=== PATIENT | male | born 1960 | race Caucasian/White ===

== ENCOUNTER 2016-06-14 18:38 | Inpatient (IN) | payer OTHER ==
--- NOTE | ~2016-06-14 | HP ---
History And Physical [address] [address] [facility] [place]. [address] NAME: HOLLY LIND : 62 STATUS : ADM Camacho PAT#: [id number] AGE: 56 ADM/REG DATE : 06/14/16 MR#: [id number] REPORT SERV DATE: 06/15/16 DICTATED BY: DOUG SPENCER DATE: 06/15/16 REPORT STATUS : Draft TRANSCRIBED BY: MODL DATE: 06/15/16 DATE OF ADMISSION: 06/14/2016 CHIEF COMPLAINT: Fever and chills. HISTORY OF PRESENT ILLNESS: This is a 56-year-old male with a history of end-stage liver disease, recent pancreatitis, history of GI bleed with esophageal varices in the past, who was in his usual state of health until this morning when he woke up and felt he was not feeling too good. He continued to feel poorly while at work and he thought he had some fever there. Later in the afternoon when he was driving home, he started having shaking chills and found himself wandering on the road even sometimes into the other natali. He immediately pulled over and called his , who came and picked him up and she decided to bring him to the emergency room to be evaluated. In the emergency room, initial workup revealed he had bibasilar infiltrates with left-sided effusion as well consistent with pneumonia. Given his recent history of admission and inpatient treatment here, it is possible he could have healthcare-associated pneumonia and Hospitalist Service is asked to admit him for further evaluation and treatment. At the time of my evaluation, he denied any chest pain or palpitations. He had no orthopnea. He had no cough, hemoptysis, night sweats, or weight loss. He has not had any recent nausea vomiting, diarrhea, hematemesis, hematochezia, or hematuria. No other history of recent travel or exposures other than those mentioned above. PAST MEDICAL HISTORY: Significant for history of end-stage liver disease, nonalcoholic steatohepatitis, recent pancreatitis, diabetes mellitus type 2, history of gastrointestinal bleeding secondary to esophageal varices, and chronic anemia. SOCIAL HISTORY: He does not smoke, drink, or use recreational drugs. FAMILY HISTORY: Noncontributory. MEDICATIONS: His medications at home were reviewed by me in the chart today and reordered by me. REVIEW OF SYSTEMS: As in history of present illness. All other systems were reviewed in detail and are quite unremarkable. PHYSICAL EXAMINATION: GENERAL: This is a pleasant 56-year-old, not in any acute distress. HEENT: His head is atraumatic, normocephalic. He is alert, awake, oriented to time, place, and person. Pupils are equal, reacting to light and accommodating. External ocular muscles are intact. Membranes are moist and pink. Sclerae are nonicteric. NECK: Supple with no jugular venous distention, lymphadenopathy, or thyromegaly. LUNGS: Clear to auscultation with no wheezes, rubs, or crackles. History And Physical [address] [address] NAME: HOLLY LIND : 62 STATUS : ADM Camacho PAT#: [id number] AGE: 56 ADM/REG DATE : 06/14/16 MR#: [id number] REPORT SERV DATE: 06/15/16 DICTATED BY: DOUG SPENCER DATE: 06/15/16 REPORT STATUS : Draft TRANSCRIBED BY: CHOLO DATE: 06/15/16 HEART: Heart sounds were regular with no murmurs, rubs, or gallops. ABDOMEN: Soft, nontender. Bowel sounds are present. EXTREMITIES: Showed bilateral pitting lower extremity edema. NEUROLOGIC: Grossly intact. No focal sensory or motor deficits. There was no tremor. VITAL SIGNS: Today showed a temperature of 102 degrees Fahrenheit, pulse 93, respirations 16 a minute, blood pressure was 128/56, oxygen saturations were 97% breathing 2 L of oxygen via nasal cannula. LABORATORY DATA: Reviewed on the [employer] system showed a sodium of 138, potassium was 3.4, chloride 102, and CO2 of 29. BUN was 16 with creatinine of 1.41. His glucose was 151. Calcium was 8.4, magnesium was not done today. His total bilirubin was 1.5 today. Alkaline phosphatase was 192. ALT and AST were within normal limits. Lipase was 179 today. Ammonia was 82. Lactate was 1.4. CBC showed white blood cell count of 4600, hemoglobin was 8.5, hematocrit 28.7. This has been around his baseline. His MCV is 74.2 and platelet count was 62 today. Urinalysis did not show any gross abnormality. Films of the CTA of his chest were reviewed by me on the PACS today and interpreted by me. Official Radiology comments were also reviewed. There is bibasilar atelectasis versus infiltrates with left-sided pleural effusion as well. A 12-lead EKG done in the emergency room was reviewed and interpreted by me. There is normal sinus rhythm at a rate of 95 per minute without any acute ST-T changes. IMPRESSION: 1. Fever and chills. 2. Healthcare-associated pneumonia. 3. Recent pancreatitis. 4. End-stage liver disease with cirrhosis. 5. Diabetes mellitus type 2. 6. Thrombocytopenia. PLAN: We will admit Mr. Lind to a telemetry bed for a 24-hour observation period. After cultures are drawn, we will start him on empiric IV antibiotics for healthcare- associated pneumonia. Check his lactate and procalcitonin levels. We will start him on IV fluids for volume resuscitation. Check chemistry and CBC in the morning and replace as needed. We will also start him on NovoLog insulin given subcutaneously per sliding scale for blood sugar control. We will continue all other medications and treatments at this time and due to his thrombocytopenia, we will place him on SCDs for DVT prophylaxis. I have discussed the above plans with the patient. Questions were answered and he is agreeable to the above recommendations. Hospitalist Service will be following him during his stay here. [facility] Doug Spencer M.D. / [phone]
--- NOTE | ~2016-06-14 | DS ---
Discharge Summary [address] [place]. [address] NAME: HOLLY LIND : 62 STATUS : DIS IN PAT#: [id number] AGE: 56 ADM/REG DATE : 06/14/16 MR#: [id number] REPORT SERV DATE: 06/20/16 DICTATED BY: IRA KIM DATE: 06/17/16 REPORT STATUS : Draft TRANSCRIBED BY: MODL DATE: 06/17/16 ADMISSION DATE: 06/14/2016 DISCHARGE DATE: 06/17/2016 REASON FOR ADMISSION: Healthcare-associated pneumonia, acute kidney injury. HISTORY OF PRESENT ILLNESS: Please refer Dr. Spencer's history and physical dated 06/15/2016, for complete details regarding the patient's admission. In brief, the patient was admitted to the Hospitalist Service for fever, chills likely due to healthcare-associated pneumonia. HOSPITAL COURSE: The patient had an uncomplicated hospital course. He presented with a fever. The ER did a chest x-ray, which showed some mild central venous congestion. CT scan of the abdomen and pelvis showed marked splenomegaly. There was cholelithiasis, but no acute cholecystitis pattern. There are bibasilar infiltrates and left pleural effusion. May present bibasilar pneumonia and some mild abdominal ascites. Dr. Spencer had started the patient on vancomycin and cefepime. Blood cultures were obtained, which showed no growth to date. His fever had defervesced and has been afebrile for the past 24 hours. On 06/16/2016, he was feeling excellent, was requesting to go home, but I encouraged him to stay for one more day with IV antibiotics. His abdomen was distended. He was sent down to Interventional Radiology for a possible paracentesis. Limited abdominal ultrasound showed trace ascites and paracentesis was performed. He did have about 1 to 2+ pitting edema in his lower extremities. His acute kidney injury had resolved. His diuretics were held and started on some gentle IV hydration. His creatinine is down to about 1.1 on the day of discharge. The patient feels great and is wanting to go home today. He will be discharged home in stable condition. DISCHARGE DIAGNOSES: 1. Healthcare-associated pneumonia, now resolving. 2. Acute kidney injury, now resolved. 3. End-stage liver disease with cirrhosis, stable. 4. Type 2 diabetes. 5. Pancytopenia secondary to infection and cirrhosis. 6. History of recent pancreatitis. 7. Cholelithiasis. 8. History of varices secondary to nonalcoholic steatohepatitis. PROCEDURES: Include CT scan of the abdomen and pelvis, chest x-ray, limited abdominal ultrasound looking for ascites. DISCHARGE MEDICATIONS: Include Bumex 10 mg twice a day on Sunday, Sunday, Sunday and then 8 mg twice a day Sunday, Sunday, , Sunday; carvedilol 3.125 mg twice a day; eplerenone 50 mg twice a day; gabapentin 300 mg at bedtime; insulin Levemir 60 units twice a day; lactulose 15 mL twice a day, Protonix 40 mg twice a day, K-Dur 20 mEq daily, rifaximin 550 mg twice a day, insulin lispro sliding scale, Levaquin 750 mg once a day for seven days. FOLLOWUP: The patient will follow up with Dr. Rikki Quiroga as scheduled and his nurse Discharge Summary [address] [address] NAME: HOLLY LIND : 62 STATUS : DIS IN PAT#: [id number] AGE: 56 ADM/REG DATE : 06/14/16 MR#: [id number] REPORT SERV DATE: 06/20/16 DICTATED BY: IRA KIM DATE: 06/17/16 REPORT STATUS : Draft TRANSCRIBED BY: CHOLO DATE: 06/17/16 practitioner in [place], I think it is Cherrie Dozier. SWEETIE/CHOLO Ira Kim MD / [id number] CC: MD EBONY Shipley,CHERRIE Quiroga M.D.
[2016-06-14 18:20] LABS: BASOPHILS 0.4 %; BASOPHILS ABSOLUTE 0.02 10/3/uL (0.0-0.16); EOSINOPHILS 0.2 %; EOSINOPHILS ABSOLUTE 0.01 10/3/uL (0.0-0.53); HEMATOCRIT 28.7 % (40.0-51.0); HEMOGLOBIN 8.5 g/dL (13.6-17.8); IMMATURE GRANULOCYTES 1.1 %; IMMATURE GRANULOCYTES ABSOLUTE 0.05 10/3/uL (0.0-0.11); LYMPHOCYTES 11.8 %; LYMPHOCYTES ABSOLUTE 0.54 10/3/uL (0.67-4.30); MEAN CORPUS HGB CONC 29.6 g/dL (32.0-36.0); MEAN CORPUSCULAR VOLUME 74.2 fL (80-100); MEAN PLATELET VOLUME 8.9 fL (9.2-13.0); MONOCYTES ABSOLUTE 0.32 10/3/uL (0.21-1.20); NEUTROPHILS 79.5 %; NEUTROPHILS ABSOLUTE 3.64 10/3/uL (2.02-8.40); PLATELET COUNT 62 10/3/uL (150-400); RBC DISTRIBUTION WIDTH 19.8 % (12.0-16.0); RED CELL COUNT 3.87 10/6/uL (4.7-6.1)
[2016-06-14 18:23] LABS: ER CBC TAT 0 Hrs 09 Mins; MANUAL DIFF NO %; WHITE BLOOD CELLS 4.6 10/3/uL (4.5-10.5)
[2016-06-14 18:26] LABS: INTERNATIONAL NORMAL RATI 1.3 UNITS (-); PARTIAL THROMBO TIME 29.7 SEC (22.5-37.2); PROTIME (NOT ORD) 16.3 SEC (12.0-14.5)
[2016-06-14 18:38] LABS: A/G RATIO 0.6 (0.7-1.9); BUN (BLOOD UREA NITROGEN) 16 MG/DL (6-23); CALCIUM, SERUM 8.4 MG/DL (8.5-10.4); CHLORIDE, SERUM 102 MMOL/L (96-112); CO2 (CARBON DIOXIDE) 29 MMOL/L (24-34); CREATININE 1.41 MG/DL (0.70-1.30); GFR AFRICAN AMERICAN 65 ML/MIN (>=60); GFR NON AFRICAN AMERICAN 56 ML/MIN (>=60); GLOBULIN 4.7 G/DL (2.5-4.1); LACTATE 1.4 MMOL/L (0.3-2.4); POTASSIUM, SERUM 3.4 MMOL/L (3.5-5.3); SGOT(AST) 34 U/L (5-40); SGPT(ALT) 31 U/L (5-65); SODIUM, SERUM 138 MMOL/L (135-148); TOTAL BILIRUBIN 1.5 MG/DL (0-1.2); TOTAL PROTEIN 7.7 G/DL (6.0-8.5)
[~2016-06-14 18:38] MED LIST: BACDS PO; BUM2 PO; CIP5 PO; CONSTULOSE PO; DURICEF; DURICEF PO; ENULOSE PO; FLORASTOR250 MG PO; GLUCOPHAGE1000 MG PO; INSPRA50 MG PO; IRON325 MG PO; KCL40UDL PO; KDUR20 PO; KLOR-CON M2020 MEQ PO; L40 PO; L80 PO; LACT30UDL PO; LEVEMFLXPN SC; LEVEMIR SC; LOP25 PO; MAGOX4 PO; METFORMIN PO; NEUR100 PO; NEUR300 PO; NEUR600 PO; NOVOLOG SC; NOVOPEN SC; OCEAN NAS; PROTONIX PO; SPIRO25 PO; SPIRO50 PO; TRADJENTA5 MG PO; TYLENOL OTC PO; VISINE0.05 % OPH; XIFAXAN550 MG PO
[2016-06-14 18:41] LABS: ALKALINE PHOSPHATASE 192 U/L (45-117); GLUCOSE, SERUM 151 MG/DL (60-99)
[2016-06-14 18:57] LABS: ANISOCYTOSIS 1+ (5-10/OIF) (0-5/OIF); HYPOCHROMIA 1+ (3-10/OIF) (0-2/OIF); MICROCYTES 1+ (5-10/OIF) (0-5/OIF); PLATELET ESTIMATE DEC (ADEQUATE)
[2016-06-14 19:11] LABS: INFLUENZA A SCREEN NEGATIVE (NEGATIVE); INFLUENZA B SCREEN NEGATIVE (NEGATIVE)
[2016-06-14 19:57] LABS: WBC (NOT ORDERED) (RFLEX) 0 (0-5)
[2016-06-14 20:04] LABS: ASCORBIC ACID (UR NOT ORDER) NEG (NEG); BILIRUBIN, URINE NEGATIVE (NEG); ER URINALYSIS TAT 0 Hrs 07 Mins; KETONE, URINE NEGATIVE (NEG); LEUKOCYTE ESTERASE(NOT OR NEG (NEG); NITRITE (URINE) NEG (NEG)
[2016-06-14 20:48] LABS: PROCALCITONIN 0.36 ng/mL (<0.5)
[2016-06-14] MEDS ORDERED: BUM2 PO ×2 (23:01→23:02)
[2016-06-14] MEDS ORDERED: COREG3 PO (23:02)
[2016-06-14] MEDS ORDERED: INSPRA50 MG PO (23:02)
[2016-06-14] MEDS ORDERED: KDUR20 PO (23:03)
[2016-06-14] MEDS ORDERED: NEUR300 PO (23:03)
[2016-06-14] MEDS ORDERED: XIFAXAN550 MG PO (23:03)
[2016-06-14] MEDS ORDERED: PROTONIX PO (23:03)
[2016-06-14] MEDS ORDERED: CONSTULOSE PO (23:04)
[2016-06-14] MEDS ORDERED: LEVEMFLXPN PO (23:04)
[2016-06-14] MEDS ORDERED: HUMALOG SC (23:04)
[2016-06-15 07:27] LABS: BASOPHILS 0.2 %; BASOPHILS ABSOLUTE 0.01 10/3/uL (0.0-0.16); EOSINOPHILS 0 %; HEMATOCRIT 24.7 % (40.0-51.0); HEMOGLOBIN 7.5 g/dL (13.6-17.8); IMMATURE GRANULOCYTES 0.5 %; IMMATURE GRANULOCYTES ABSOLUTE 0.02 10/3/uL (0.0-0.11); LYMPHOCYTES ABSOLUTE 0.59 10/3/uL (0.67-4.30); MANUAL DIFF NO %; MEAN CORPUS HGB CONC 30.4 g/dL (32.0-36.0); MEAN CORPUSCULAR HEMOGLOB 22.2 pg (26.0-34.0); MEAN CORPUSCULAR VOLUME 73.1 fL (80-100); MONOCYTES ABSOLUTE 0.46 10/3/uL (0.21-1.20); NEUTROPHILS 74.3 %; NEUTROPHILS ABSOLUTE 3.12 10/3/uL (2.02-8.40); PLATELET COUNT 57 10/3/uL (150-400); RBC DISTRIBUTION WIDTH 20.4 % (12.0-16.0); RED CELL COUNT 3.38 10/6/uL (4.7-6.1); WHITE BLOOD CELLS 4.2 10/3/uL (4.5-10.5)
[2016-06-15 07:29] LABS: BUN (BLOOD UREA NITROGEN) 16 MG/DL (6-23); CALCIUM, SERUM 8.2 MG/DL (8.5-10.4); CHLORIDE, SERUM 104 MMOL/L (96-112); CO2 (CARBON DIOXIDE) 28 MMOL/L (24-34); GLUCOSE, SERUM 143 MG/DL (60-99); POTASSIUM, SERUM 3.2 MMOL/L (3.5-5.3); SODIUM, SERUM 141 MMOL/L (135-148)
[2016-06-15 07:30] LABS: CREATININE 1.28 MG/DL (0.70-1.30); GFR AFRICAN AMERICAN 73 ML/MIN (>=60); GFR NON AFRICAN AMERICAN 63 ML/MIN (>=60); PHOSPHORUS, SERUM 2.6 MG/DL (2.5-4.5)
[2016-06-15 07:39] LABS: ANISOCYTOSIS 1+ (5-10/OIF) (0-5/OIF); MICROCYTES 1+ (5-10/OIF) (0-5/OIF); PLATELET ESTIMATE DEC (ADEQUATE)
[2016-06-15 07:40] LABS: RBC MORPHOLOGY ABN (NORMAL)
[2016-06-16 03:49] LABS: BASOPHILS 0.4 %; BASOPHILS ABSOLUTE 0.02 10/3/uL (0.0-0.16); EOSINOPHILS 1.1 %; EOSINOPHILS ABSOLUTE 0.05 10/3/uL (0.0-0.53); HEMOGLOBIN 8.2 g/dL (13.6-17.8); IMMATURE GRANULOCYTES 0.4 %; IMMATURE GRANULOCYTES ABSOLUTE 0.02 10/3/uL (0.0-0.11); LYMPHOCYTES 13.8 %; LYMPHOCYTES ABSOLUTE 0.64 10/3/uL (0.67-4.30); MEAN CORPUS HGB CONC 30.1 g/dL (32.0-36.0); MEAN CORPUSCULAR HEMOGLOB 22.5 pg (26.0-34.0); MEAN CORPUSCULAR VOLUME 74.7 fL (80-100); MEAN PLATELET VOLUME 8.5 fL (9.2-13.0); MONOCYTES 10.3 %; MONOCYTES ABSOLUTE 0.48 10/3/uL (0.21-1.20); NEUTROPHILS ABSOLUTE 3.43 10/3/uL (2.02-8.40); PLATELET COUNT 58 10/3/uL (150-400); RBC DISTRIBUTION WIDTH 20.5 % (12.0-16.0); RED CELL COUNT 3.64 10/6/uL (4.7-6.1); WHITE BLOOD CELLS 4.6 10/3/uL (4.5-10.5)
[2016-06-16 03:57] LABS: HEMATOCRIT 27.2 % (40.0-51.0); MANUAL DIFF NO %
[2016-06-16 04:05] LABS: A/G RATIO 0.6 (0.7-1.9); ALBUMIN 2.6 G/DL (3.5-5.0); BUN (BLOOD UREA NITROGEN) 15 MG/DL (6-23); CALCIUM, SERUM 7.9 MG/DL (8.5-10.4); CHLORIDE, SERUM 106 MMOL/L (96-112); CO2 (CARBON DIOXIDE) 28 MMOL/L (24-34); CREATININE 1.31 MG/DL (0.70-1.30); GFR AFRICAN AMERICAN 71 ML/MIN (>=60); GFR NON AFRICAN AMERICAN 61 ML/MIN (>=60); GLOBULIN 4.5 G/DL (2.5-4.1); PHOSPHORUS, SERUM 2.4 MG/DL (2.5-4.5); POTASSIUM, SERUM 3.1 MMOL/L (3.5-5.3); SGOT(AST) 27 U/L (5-40); SGPT(ALT) 28 U/L (5-65); SODIUM, SERUM 142 MMOL/L (135-148); TOTAL PROTEIN 7.1 G/DL (6.0-8.5)
[2016-06-16 04:06] LABS: ALKALINE PHOSPHATASE 159 U/L (45-117); GLUCOSE, SERUM 102 MG/DL (60-99); MICROCYTES 1+ (5-10/OIF) (0-5/OIF); TOTAL BILIRUBIN 2.3 MG/DL (0-1.2)
[2016-06-16 04:07] LABS: HYPOCHROMIA 1+ (3-10/OIF) (0-2/OIF)
[2016-06-16 04:08] LABS: PLATELET ESTIMATE DEC (ADEQUATE); RBC MORPHOLOGY ABN (NORMAL)
[2016-06-16 11:27] LABS: INTERNATIONAL NORMAL RATI 1.3 UNITS (-); PROTIME (NOT ORD) 16.5 SEC (12.0-14.5)
[2016-06-16 11:36] LABS: ALBUMIN 2.7 G/DL (3.5-5.0); TOTAL PROTEIN 7.1 G/DL (6.0-8.5)
[2016-06-16 12:17] LABS: PARTIAL THROMBO TIME 30.2 SEC (22.5-37.2)
[2016-06-17 03:02] LABS: BASOPHILS 0.3 %; BASOPHILS ABSOLUTE 0.01 10/3/uL (0.0-0.16); EOSINOPHILS 4.1 %; EOSINOPHILS ABSOLUTE 0.13 10/3/uL (0.0-0.53); HEMATOCRIT 26.5 % (40.0-51.0); HEMOGLOBIN 8.1 g/dL (13.6-17.8); IMMATURE GRANULOCYTES 0.6 %; IMMATURE GRANULOCYTES ABSOLUTE 0.02 10/3/uL (0.0-0.11); LYMPHOCYTES 26.9 %; LYMPHOCYTES ABSOLUTE 0.86 10/3/uL (0.67-4.30); MEAN CORPUS HGB CONC 30.6 g/dL (32.0-36.0); MEAN CORPUSCULAR HEMOGLOB 23.1 pg (26.0-34.0); MEAN CORPUSCULAR VOLUME 75.5 fL (80-100); MEAN PLATELET VOLUME 9.1 fL (9.2-13.0); MONOCYTES 8.1 %; MONOCYTES ABSOLUTE 0.26 10/3/uL (0.21-1.20); NEUTROPHILS ABSOLUTE 1.92 10/3/uL (2.02-8.40); PLATELET COUNT 61 10/3/uL (150-400); RBC DISTRIBUTION WIDTH 20.9 % (12.0-16.0); RED CELL COUNT 3.51 10/6/uL (4.7-6.1); WHITE BLOOD CELLS 3.2 10/3/uL (4.5-10.5)
[2016-06-17 03:09] LABS: MANUAL DIFF NO %
[2016-06-17 03:34] LABS: A/G RATIO 0.6 (0.7-1.9); ALBUMIN 2.5 G/DL (3.5-5.0); ALKALINE PHOSPHATASE 134 U/L (45-117); BUN (BLOOD UREA NITROGEN) 15 MG/DL (6-23); CALCIUM, SERUM 7.9 MG/DL (8.5-10.4); CHLORIDE, SERUM 105 MMOL/L (96-112); CO2 (CARBON DIOXIDE) 30 MMOL/L (24-34); CREATININE 1.09 MG/DL (0.70-1.30); GFR AFRICAN AMERICAN 88 ML/MIN (>=60); GFR NON AFRICAN AMERICAN 76 ML/MIN (>=60); GLUCOSE, SERUM 109 MG/DL (60-99); PHOSPHORUS, SERUM 2.3 MG/DL (2.5-4.5); POTASSIUM, SERUM 3.2 MMOL/L (3.5-5.3); SGOT(AST) 25 U/L (5-40); SGPT(ALT) 22 U/L (5-65); SODIUM, SERUM 142 MMOL/L (135-148); TOTAL BILIRUBIN 1.8 MG/DL (0-1.2); TOTAL PROTEIN 6.5 G/DL (6.0-8.5); VANCOMYCIN TROUGH 14.2 MCG/ML (10.0-20.0)
[2016-06-17 03:55] LABS: MICROCYTES 1+ (5-10/OIF) (0-5/OIF); PLATELET ESTIMATE DEC (ADEQUATE); RBC MORPHOLOGY ABN (NORMAL)
[2016-06-17] MEDS ORDERED: LEVAQUIN750 MG PO (09:53)
== END 2016-06-17 13:36 | disposition home or self-care (01) | DRG 194 ==
LOC: ER 18:38 → 5SO 20:00
PROVIDERS: Emergency Medicine; Internal Medicine; Radiology Vascular & Interventional Radiology
DX: J18.9 Pneumonia, unspecified organism (principal); J90 Pleural effusion, not elsewhere classified; N17.9 Acute kidney failure, unspecified; D61.818 Other pancytopenia; K74.60 Unspecified cirrhosis of liver; D69.6 Thrombocytopenia, unspecified; K72.90 Hepatic failure, unspecified without coma; E11.9 Type 2 diabetes mellitus without complications; K80.20 Calculus of gallbladder without cholecystitis without obstruction; Z79.899 Other long term (current) drug therapy; Z79.4 Long term (current) use of insulin
CPT/HCPCS: 71010; 74176; 76705; 80048; 80053; 80202; 81001; 82040; 82140; 82962; 83605; 83690; 83735; 84100; 84132; 84145; 84155; 85025; 85049; 85610; 85730; 86140; 87040; 87449; 87804; 93005; 94640; 99285; A9270-GY; J0692; J3370